=== PATIENT | female | born 1995 | race Caucasian/White ===

== ENCOUNTER 2018-10-07 22:56 | Emergency (ER) | payer BC ==
[~2018-10-07] VITALS: Ht 154.9 cm; Wt 68.6 kg
[2018-10-07 23:45] LABS: COLLECTION METHOD CLEAN CATCH
[2018-10-07 23:51] LABS: BASO % 0.4 % (0.0-2.0); EOS # 0.1 (0.0-0.7); EOS % 0.7 % (0-4.0); GRAN # 5.8 (1.4-6.5); GRAN % 76.2 % (42.2-75.2); HEMATOCRIT 40.3 % (37.0-47.0); HEMOGLOBIN 13.8 g/dl (12.5-16.0); LYMPH # 1.2 (1.2-3.4); LYMPH % 15.4 % (20.0-51.0); MEAN CELL VOLUME 92 fl (80.0-100.0); MEAN CORPUSCULAR HEMOGLOBIN 32 pg (27.0-31.0); MEAN CORPUSCULAR HGB CONC 34 g/dl (33.0-37.0); MEAN PLATELET VOLUME 10.4 fl (7.4-10.4); MONO # 0.5 (0.1-0.6); PLATELET COUNT 231 K/mm3 (130-400); RED BLOOD COUNT 4.37 M/mm3 (4.10-5.30); REDCELL DISTRIBUTION WIDTH-CV 12.4 % (11.5-14.5)
[2018-10-07 23:59] LABS: MUCOUS Present /lpf; PH 7 (5-8); SQUAMOUS EPITHELIAL None Seen /hpf; URINE APPEARANCE Clear; URINE BACTERIA None Seen /hpf; URINE BILIRUBIN Negative (NEGATIVE); URINE BLOOD Negative (NEGATIVE); URINE COLOR Yellow; URINE GLUCOSE Negative (NEGATIVE); URINE KETONE Negative (NEGATIVE); URINE LEUKOCYTE ESTERASE Negative (NEGATIVE); URINE NITRATE Negative (NEGATIVE); URINE PROTEIN(semi-quant) Negative (NEGATIVE); URINE RBC 0-2 /hpf; URINE UROBILINOGEN Negative (NEGATIVE)
[2018-10-08 00:05] LABS: ALBUMIN 4.5 gm/dL (3.5-5.0); BILIRUBIN,TOTAL 0.6 mg/dL (0.0-1.0); C-REACTIVE PROTEIN 1.1 mg/dL (0.0-0.9); CALCIUM 8.9 mg/dL (8.4-10.2); CREATININE, serum 0.54 mg/dL (0.52-1.25); POTASSIUM 3.7 mmol/L (3.4-5.0); TOTAL PROTEIN 7.4 gm/dL (6.4-8.2)
[2018-10-08 00:55] VITALS: BP 102/65; PULSE 105; TEMP 96.5
== END 2018-10-08 01:13 | disposition home or self-care (01) ==
LOC: COL.ER 22:56
PROVIDERS: Emergency Medicine
DX: R51 Headache (principal); R10.30 Lower abdominal pain, unspecified; M79.10 Myalgia, unspecified site
CPT/HCPCS: J1885; J2405; J7030

== ENCOUNTER 2019-12-24 08:02 | Inpatient (IN) | payer BC ==
[~2019-12-24] VITALS: Ht 157.5 cm; Wt 83.2 kg
[2019-12-24] VITALS (59 sets, daily range): BP systolic 96–163; BP diastolic 55–96; PULSE 78–162; TEMP 97.8–101.3
[2019-12-24] MEDS ORDERED: PRENATAL TABLET PO (08:27)
--- NOTE | 2019-12-24 08:38 | NUR ---
Pt and spouse arrive ambulatory from ER to unit at 0810. Pt changed into gown, EFM explained and placed. Pt states she has been andi since about 0130, contractions are now about every 5 minutes. Pt is visibly uncomfortable, breathing through contractions. Pt denies leaking of fluid, vaginal bleeding, reports good movement. Vitals taken, assessment done, report given to Dr. Swartz.
[2019-12-24 09:12] LABS: BASO % 0.1 % (0.0-2.0); EOS % 0.4 % (0-4.0); GRAN % 75.2 % (42.2-75.2); HEMOGLOBIN 11.6 g/dl (12.5-16.0); LYMPH # 1.1 (1.2-3.4); MEAN CELL VOLUME 83 fl (80.0-100.0); MEAN CORPUSCULAR HEMOGLOBIN 26 pg (27.0-31.0); MEAN CORPUSCULAR HGB CONC 32 g/dl (33.0-37.0); MONO # 0.5 (0.1-0.6); PLATELET COUNT 212 K/mm3 (130-400); RED BLOOD COUNT 4.39 M/mm3 (4.10-5.30)
[2019-12-24 09:31] LABS: HEMATOCRIT 36.5 % (37.0-47.0)
--- NOTE | 2019-12-24 09:50 | NUR ---
Pt sitting upright for epidural placement. Difficulty tracing FHR due to maternal positon. RN at bedside adjusting monitors. FHR audible.
--- NOTE | 2019-12-24 22:00 | NUR ---
183- Bedside report from MARGO Everett. Pitocin infusing at 2mU per protocol. Patient is currently experiencing N/V. RN remains at bedside. 1854- See Physician Notification. 1899- SVE 7-8/100/-1. 1904- See Physician Notification. 1914- Patient repositioned LL. EFM tracing maternal hearttones. FHR audible in the 150's. RN remains at bedside. 1929- Increased temperature 100.4 noted. 2014- SVE 9-10/100/-1. Temperature 99.5. 2024- See Physician Notification. 2039- Patient repositioned RL. EFM tracing maternal hearttones. FHR audible in the 170's. RN remains at bedside. Patient is experiencing N/V with position changes. 2099- Temperature 99.2. Nursery RNPaz notified. 2129- N/V. Complete/0. 2134- See Physician Notification. 2144- Patient begins pushing with contractions with this RN. Minimal labia swelling noted at this time. 2214- Labia continues to swell. SVE reveals fetus may possibly be asynclitic or have a brow presentation. brick stackerKermit and Nursery RNPaz notified. Temperature noted a 100.5 Orally and 101.3 Axillary. 2224- See Physician Notification. 2239- at bedside. VORB Ampicillin 2g IV and Acetaminophen 1g PO. brick stackerKermit notified. Patient begins pushing with MD. 0- See eMAR. 2254- See eMAR. 2310- Temperature noted 100.7. 2339- Motley catheter removed. 250ml out. 2344- Labor room prepped for vaginal delivery. Nursery RNPaz notified. 2349- of viable baby boy. Pitocin off. Cord clamped and cut by patient's mother. Cord blood obtained. NB care assumed by MARGO Mullen. 235- Spontaneous delivery of placenta. Pitocin infusing at 333 ml/hr per protocol. Deep 2nd degree perineal laceration repaired by . Fundus massaged to firm by RN. Pericare completed by MD. Ice pack applied. 0000- PP Recovery.
[2019-12-25] VITALS (20 sets, daily range): BP systolic 88–152; BP diastolic 50–82; PULSE 99–150; TEMP 97.6–100.5
--- NOTE | 2019-12-25 02:00 | NUR ---
[facility] cancelled ALL meds upon transfer to PP room. Reordered meds.
--- NOTE | 2019-12-25 04:00 | NUR ---
0345- Patient up to edge of bed. Epidural catheter removed without issue. Bandaid applied. Patient able to pivot to wheelchair. Patient in wheelchair and starts to become pale. Cold cloth applied to neck. Patient deep breathing alcohol pads in through nose and out through mouth. Patient talks with me through this and states "I'm starting to come back now." Patient educated this may occur again when using restroom. Patient into restroom by wheelchair and able to pivot to toilet without issue. Once on toilet, patient begins to lose color and has blank stare and starts having mini convulsions. Patient's head protected by RN and additional help called for assist. Patient is again deep breathing with alcohol pads with RN x3 at side. IV flushed and LR IV bolus infusing. Ephedrine given by MARGO Palmer. Patient red-robined on toilet. 200ml out. Unable to collect clean catch UA at this time. Patient able to pivot to wheelchair and move to room with the help of 2x assist. Patient encouraged to rest. Bed in lowest position. Call light within reach. Will continue to monitor.
--- NOTE | 2019-12-25 06:30 | NUR ---
MOTHER ASSESSED. BLEEDING WNL. HAD BEEN DIZZY WITH AMBULATION AND HAS NOT BEEN OUT OF BED TO VOID. ATTEMPTED TO SIT UP. PATIENT ON EDGE OF BED W/O COMPLANTS OF DIZZINESS. THIS NURSE AND SAJAN Ross RN STAND UP ASSIST FOR PATIENT TO STAND. PATIENT STANDS AND C/O DIZZINESS. PATIENT ENCOURAGED TO SIT BACK DOWN. ENCOURAGED PATIENT TO EAT AND CALL OUT IN 30 MINUTES TO ATTEMPT TO GO TO BATHROOM.
--- NOTE | 2019-12-25 07:40 | NUR ---
Pt moved to side of bed and stands. Pt denies any dizziness and with assist walks to bathroom. While on toilet pt looks pale, states she is slightly dizzy and unable to void. Pt ambulates to bed. Straight cath used, 75cc dark, tea colored urine noted. 0830:Dr Hull here and updated pt status and labs reviewed. Hgb decreased from 11.3 to 7.1. Physician at bedside reviews options with pt and . Decision made to transfuse 2 units PRBC's. See orders.
[2019-12-25 08:03] LABS: MEAN CELL VOLUME 86 fl (80.0-100.0); MEAN CORPUSCULAR HGB CONC 31 g/dl (33.0-37.0); MEAN PLATELET VOLUME 12.1 fl (7.4-10.4); PLATELET COUNT 177 K/mm3 (130-400); REDCELL DISTRIBUTION WIDTH-CV 15.6 % (11.5-14.5)
[2019-12-25 08:13] LABS: HEMOGLOBIN 7.1 g/dl (12.5-16.0); MEAN CORPUSCULAR HEMOGLOBIN 26 pg (27.0-31.0)
[2019-12-25 08:14] LABS: HEMATOCRIT 23.1 % (37.0-47.0)
[2019-12-25 08:42] LABS: COLLECTION METHOD CLEAN CATCH
[2019-12-25 09:00] LABS: MUCOUS Present /lpf; PH 5 (5-8); SQUAMOUS EPITHELIAL 0-2 /hpf; URINE APPEARANCE Cloudy; URINE BACTERIA None Seen /hpf; URINE BILIRUBIN Negative (NEGATIVE); URINE BLOOD 3+ (NEGATIVE); URINE COLOR Amber; URINE GLUCOSE Negative (NEGATIVE); URINE KETONE Trace (NEGATIVE); URINE LEUKOCYTE ESTERASE Trace (NEGATIVE); URINE NITRATE Negative (NEGATIVE); URINE PROTEIN(semi-quant) 2+ (NEGATIVE); URINE RBC >50 /hpf; URINE UROBILINOGEN Negative (NEGATIVE)
--- NOTE | 2019-12-25 10:03 | NUR ---
Initial visit; Parents thanked Transportation Clerk for offering congratulations and God's blessings for the of their son. Transportation Clerk thanked family for choosing [facility].
--- NOTE | 2019-12-25 14:15 | NUR ---
Pt up to bathroom with assist. Voids 200cc urine. Pt has more color in her face and denies feeling dizzy, just slightly weak.
[2019-12-25 19:46] LABS: BASO # 0.1 (0.0-0.2); BASO % 0.3 % (0.0-2.0); EOS % 0.2 % (0-4.0); GRAN # 12.2 (1.4-6.5); GRAN % 78.9 % (42.2-75.2); LYMPH % 12.9 % (20.0-51.0); MEAN CELL VOLUME 85 fl (80.0-100.0); MEAN CORPUSCULAR HGB CONC 32 g/dl (33.0-37.0); MEAN PLATELET VOLUME 11.4 fl (7.4-10.4); MONO # 1.2 (0.1-0.6); MONO % 7.4 % (1.7-9.3); PLATELET COUNT 152 K/mm3 (130-400); RED BLOOD COUNT 3.21 M/mm3 (4.10-5.30); REDCELL DISTRIBUTION WIDTH-CV 15.6 % (11.5-14.5)
[2019-12-25 19:47] LABS: HEMATOCRIT 27.3 % (37.0-47.0); HEMOGLOBIN 8.7 g/dl (12.5-16.0); MEAN CORPUSCULAR HEMOGLOBIN 27 pg (27.0-31.0)
[2019-12-26 02:55] VITALS: BP 120/62; PULSE 116; TEMP 97.8
[2019-12-26 07:36] VITALS: BP 113/74; PULSE 97; TEMP 98.1
[2019-12-26] MEDS ORDERED: PERCOCET 325 MG1 TA2 PO (08:15)
[2019-12-26] MEDS ORDERED: IBU800 M1 PO (08:15)
== END 2019-12-26 15:00 | disposition home or self-care (01) | DRG 805 ==
LOC: LDRO 08:02 → LDR 08:04 → LDRO 08:30 → OB 12-25 01:00
PROVIDERS: Obstetrics & Gynecology; Student in an Organized Health Care Education/Training Program; ADMIT Obstetrics & Gynecology
PROC: 10E0XZZ Delivery of Products of Conception, External Approach (ICD-10-PCS; principal; 2019-12-24)
PROC: 0KQM0ZZ Repair Perineum Muscle, Open Approach (ICD-10-PCS; 2019-12-24)
PROC: 10907ZC Drainage of Amniotic Fluid, Therapeutic from Products of Conception, Via Natural or Artificial Opening (ICD-10-PCS; 2019-12-24)
DX: O77.0 Labor and delivery complicated by meconium in amniotic fluid (principal); O41.1230 Chorioamnionitis, third trimester, not applicable or unspecified; Z37.0 Single live birth; D62 Acute posthemorrhagic anemia; O70.1 Second degree perineal laceration during delivery; Z3A.39 39 weeks gestation of pregnancy; O99.02 Anemia complicating childbirth
CPT/HCPCS: J0290; J1580; J2590; J2795; J7120; P9016